=== PATIENT | male | born 1980 | race Caucasian/White ===

== ENCOUNTER 2019-07-10 11:48 | Emergency (ER) | payer OTHER, SELFPAY ==
[2019-07-10] VITALS (23 sets, daily range): BP systolic 98–124; BP diastolic 61–81; PULSE 50–93; RESP 10–23; TEMP 36.7–37; O2SAT 95–100
[2019-07-10] MEDS: Normal Saline Flush 10 ML SYR IVP (12:15)
[2019-07-10 12:37] LABS: Absolute Basophil Count 0.03 k/cumm (0.0-0.2); Absolute Lymphocyte Count 1.22 k/cumm (1.2-3.4); Absolute Monocyte Count 0.56 k/cumm (0.11-0.7); Basophils % 0.6; HCT 45.4 % (40.0-50.0); Lymphocytes % 24.4; Mean Corp. HGB Concentration 35.2 g/dL (32.0-36.0); Mean Corpuscular Hemoglobin 33.5 pg (27.0-33.0); Mean Corpuscular Volume 95.2 fL (80-95); Mean Platelet Volume 10.7 fL (8.0-11.0); Monocytes % 11.2; Neutrophils % 59.8; Platelet Count 200 x1000/uL (130-400); RBC 4.77 m/cumm (4.50-6.00); RBC Distribution Width 11.4 % (11.8-14.1); White Blood Cell Count 5.01 k/cumm (4.4-10.8)
--- NOTE | 2019-07-10 12:45 | DI.RAD_ITS ---
EXAM: XR PORTABLE CHEST AP CLINICAL HISTORY: CP TECHNIQUE: 2D digital imaging was performed. COMPARISON: No exams were available for comparison FINDINGS: MEDIASTINUM: Normal. HEART: Normal. PULMONARY VASCULATURE: Normal. LUNGS: Clear. PLEURAL SPACE: No pleural effusion or pneumothorax. BONE:Normal. OTHER FINDINGS:Normal. IMPRESSION: No acute pulmonary findings. DATA REPOSITORY: RADIATION DOSE DELIVERED:
[2019-07-10 12:48] LABS: ALT 46 U/L (16-63); AST 27 U/L (15-37); Albumin 4.1 g/dL (3.4-5.0); Alkaline Phosphatase 80 U/L (46-116); Anion Gap 5.6 mmol/L (3-11); BUN 22 mg/dL (7-18); Bilirubin, Total 0.4 mg/dL (0.2-1.0); CO2 31.4 mmol/L (21.0-32.0); Calcium 8.7 mg/dL (8.5-10.1); Chloride 101 mmol/L (98-107); Glucose 89 mg/dL (74-106); Sodium 138 mmol/L (136-145); Total Protein 7.6 g/dL (6.4-8.2)
[2019-07-10 12:49] LABS: Troponin I < 0.05 ng/Ml (<0.06)
[2019-07-10 13:12] LABS: D-Dimer 124 ng/mlFEU (<500)
--- NOTE | 2019-07-10 13:22 | W.ED.GENAD ---
Discharge Plan Disposition Patient Disposition: HOME Discharge Details Chief Complaint: RespSymp Clinical Impression: SOB (shortness of breath), Cough Primary Care Provider: Sera,Local ED Provider: Mary Dyer Home Meds and New Rx's Prescriptions: New albuterol sulfate [Proventil HFA] 90 mcg/actuation HFA aerosol inhaler 2 puff IH Q6H PRNQty: 8.5 RF: 0 Discharge Instructions Instructions: Dyspnea (ED), Acute Cough (ED) Additional Instructions: Drink plenty of fluids. Rest activities as tolerated. Use inhaler with spacer as discussed. Follow-up promptly with primary care doctor. Your labs today were reassuring. Your x-ray today is reassuring. Your vital signs today are reassuring. Your Covid testing will likely be resulted in the next 4 to 5 days. Return to the emergency room for any worsening, concerns or alarming symptoms sooner if needed as discussed. 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 Patient ports cough noted thereafter persisted through the week. Patient reports 2 days of shortness of breath chest pressure and mild chest pain. Does report mild associated dizziness. Patient denies fever or chills. Denies obvious covert exposures. Patient denies cardiac history. Patient has no significant cardiac risk factors. No recent surgeries or immobilization. No significant PE risk factors. Patient does report obvious shortness of breath in the last 2 days which is mildly worse with exertion. Patient does report history of asthma. Has not required inhaler use. Does report mild chest tightness. Patient does report history of seasonal allergies. Has tried Zyrtec with no relief in the last few days. Does report this is somewhat atypical of his seasonal allergies. Patient also reports a history of reflux. He has tried Tums in the last few days again with no significant relief of his symptoms. Vital signs normal. Patient is mildly hypotensive but describes a very active lifestyle. Patient moved here recently and has no previous records in the computer. We will plan to rule out ACS, check EKG as well as labs. Will add d-dimer given patient's complaints of dizziness, question of heart racing and shortness of breath with exertion. Given patient's cough for 1 week and development of shortness of breath will consider Covid testing. Initial labs reveal no significant leukocytosis. Patient's electrolytes are normal. Patient's renal function and LFTs normal. Patient's initial troponin normal. EKG reveals a heart rate of 54, sinus bradycardia. Incomplete right bundle branch block is noted. No previous EKG for comparison. No obvious ST segment changes. This was reviewed with Dr. El. D-dimer ordered given patient's complaints of shortness of breath with exertion, chest pressure as well as cough. Patient's PERC score is 0. Patient's d-dimer is negative. Chest x-ray reveals no acute pulmonary abnormalities. Patient's repeat troponin is normal. Patient second EKG reviewed with Dr. El is changed. Patient has no evidence of ACS at this time. Does have a notable incomplete right bundle manuel block and no previous EKGs for comparison. Patient's troponins remain normal with no delta change. Patient has no significant risk factor for ACS. Heart score 0. Discussed patient's results. He does not feel he needs admission at this time for further evaluation of possible ACS or stress testing. He does feel comfortable discharge home at this time. Patient was provided a single nebulizer treatment which he did report some improvement in his symptoms. Patient was ambulated and has no desaturations noted with ambulation or return of symptoms. Patient feels comfortable discharge home at this time. Patient discussed and was requesting a prescription for steroids. I do not feel steroid prescription is reasonable at this time as patient has no obvious hypoxia, no wheezing on exam and no clear indication for steroid at this time. We did discuss the use of it if needed prescription however I recommended this patient have reevaluation if he feels he needs additional treatment or lacks improvement with inhalers at home. Patient has no serum indicators of infection, no obvious pneumonia on x-ray. Although Covid remains in the differential diagnosis due to 5 days of cough and development of shortness of breath with swab performed in the ER prior to nebulizer treatment. Patient recommended convalescing at home until test results return. Patient put on healthcare advisory services manager list for follow-up as he has no local PCP. We did discuss use of allergy medications if this is seasonal allergy induced as patient does have a history of seasonal allergy and asthma. Patient feels comfortable with additional Zyrtec or Claritin in addition to inhaler as he did have mild relief with nebulizer during visit. Patient does feel comfortable discharge home at this time. Alarming signs and symptoms for which patient return as discussed. Strict return precautions discussed. The patient was stable and requested discharge. Prior to discharge, my usual and customary return precautions were reviewed with the patient - this included follow-up instructions and reasons to return to the Emergency Department if conditions worsens, does not improve as expected, or other new concerns arise. HPI General Date/Time Provider Initiated Documentation: 07/10/19 11:58. HPI Narrative: This is a 39-year-old patient presenting to the emergency room for complaints of cough for 1 week. 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 Patient reports that the drill he was using was smoking and he was also reporting particular matter in the air. Patient reports he was not wearing a mask. Patient reports cough began thereafter. Patient describes a dry cough for approximately 5 days then reports in the last 2 days onset of chest pressure anteriorly in the mid of his chest associated with some chest pain for the last 2 days. Patient describes very minimal chest pain. Patient does report shortness of breath noted in the last 2 days. Patient reports he has continued to remain active. He does report bike riding yesterday several miles but reports he had mild increase in shortness of breath when riding. Did report spastic type cough when exerting himself. Patient reports shallow breathing is most comfortable. Patient denies any production to his cough. Difficulty sleeping last night d/t SOB. Denies nasal congestion or sore throat. Denies any voice change. Patient denies loss of taste or smell. Patient does report mild dizziness which has been noted in the last 2 days. Denies any associated headache or balance difficulty. Ambulating without difficulty. No numbness, tingling or weakness in extremities. Denies rashes. Denies fevers or chills. No night sweats. Patient denies any history of similar. Patient reports outside of the essential visit to the grocery store he has otherwise had no ill contacts. Patient does report of an episode during dizziness when he questions heart racing but has denied any other obvious palpitation. No history of hypertension or hyperlipidemia. No significant family history of cardiac disease. Non-smoker. Denies lower extremity swelling or pain. No bowel changes, nausea, vomiting, dysuria or abdominal pain. Related Data Home Medications Medication Instructions Recorded Confirmed albuterol sulfate [Proventil HFA] 2 puff IH Q6H PRN #8.5 gm 07/10/19 Previous Rx's Medication Instructions Recorded albuterol sulfate [Proventil HFA] 2 puff IH Q6H PRN #8.5 gm 07/10/19 Allergies Allergy/AdvReac Type Severity Reaction Status Date / Time No Known Allergies Allergy Unverified 07/10/19 12:00 General Stated Complaint: RespSymp JAMES: 3 Review of Systems All systems reviewed & are unremarkable except as noted in HPI and below PFSH Medical History Asthma (Chronic) Social History Smoking/Tobacco Use Status: Never Alcohol Intake: never Drug use: Never Substance use type: does not use Do you feel safe at home: Yes Do you feel safe in your relationship?: Yes Exam Narrative Exam Narrative: CONST: Healthy appearing patient, in no acute distress. Well hydrated. Alert and oriented. HENMT: Head nomocephalic, normal to inspection. Atraumatic. Hearing grossly normal. External ear canal no erythema or swelling. TM normal bilaterally. Nose normal to inspection. No rhinnorhea. Normal facial exam. Oral mucosa normal. Tounge normal. Dentition normal. Normal posterior oropharynx. Uvula midline. EYES: General normal appearance. Alignment normal. Eyelids normal. Conjunctiva normal. Sclera normal. PERRL. NECK: Normal visual inspection. FROM. No lymphadenopathy. Trachea midline. No Midline tenderness. CHEST: Normal insepection of the chest. RESP: Normal respiratory effort. Speaking full sentences. No cough. No wheezing. No retractions. Clear to auscaltation. Breath sound equal and present bilaterally. CARDIO: No JVD. Normal PMI. Regular Rate. Regular Rhythm. Normal peripheral pulses. GI: Normal inspection of abdomen. No distension. Soft. Nontender. Bowel sounds present in all 4 quadrants. No rebound. No gaurding. MUSCULOSKELETAL: Normal Gait. FROM of all extremities. Distal neurovascularly intact. Sensation intact distally. No lower extremity edema noted. No calf pain noted bilaterally. SKIN: Normal. Dry. No rashes. NEURO: Alert and awake. Speech clear. PSYCH: Normal affect. Cooperative. Course Vital Signs Vital signs: Vital Signs Temperature 36.7 C 07/10/19 11:56 Pulse 60 07/10/19 11:56 Respiratory Rate 18 07/10/19 11:56 Blood Pressure 98/81 L 07/10/19 11:56 Pulse Oximetry 100 07/10/19 11:56 Temperature 36.7 C 07/10/19 11:56 Temperature Source Tympanic 07/10/19 11:56 Pulse 60 07/10/19 11:56 Respiratory Rate 18 07/10/19 11:56 Respiratory Effort 07/10/19 12:59 Blood Pressure 98/81 L 07/10/19 11:56 Blood Pressure Position Sitting 07/10/19 11:56 Pulse Oximetry 100 07/10/19 11:56 Oxygen Delivery Method Room Air 07/10/19 11:56 Oxygen Flow Rate 0 07/10/19 11:56 Pain Level 0 07/10/19 11:56 Lab/Test Results Lab/Test Results: Laboratory Tests Range/Units 07/10/19 07/10/19 07/10/19 12:15 12:15 12:15 WBC (4.4-10.8) k/cumm 5.01 RBC (4.50-6.00) m/cumm 4.77 Hgb (13.5-17.5) g/dL 16.0 Hct (40.0-50.0) % 45.4 MCV (80-95) fL 95.2 H MCH (27.0-33.0) pg 33.5 H MCHC (32.0-36.0) g/dL 35.2 RDW (11.8-14.1) % 11.4 L Plt Count (130-400) x1000/uL 200 MPV (8.0-11.0) fL 10.7 Immature Gran % % 0.0 Neutrophils % 59.8 Lymphocytes % 24.4 Monocytes % 11.2 Eosinophils % 4.0 Basophils % 0.6 Absolute Neutrophils (1.2-6.7) k/cumm 3.00 Absolute Lymphocytes (1.2-3.4) k/cumm 1.22 Absolute Monocytes (0.11-0.7) k/cumm 0.56 Absolute Eosinophils (0.0-0.7) k/cumm 0.20 Absolute Basophils (0.0-0.2) k/cumm 0.03 D-Dimer (<500) ng/mlFEU 124 Sodium (136-145) mmol/L 138 Potassium (3.5-5.1) mmol/L 4.0 Chloride (98-107) mmol/L 101 Carbon Dioxide (21.0-32.0) mmol/L 31.4 Anion Gap (3-11) mmol/L 5.6 BUN (7-18) mg/dL 22 H Creatinine (0.70-1.30) mg/dL 0.70 Estimated GFR/1.73 m2 (mL/min/1.73m2) >= 60.00 Glucose (74-106) mg/dL 89 Calcium (8.5-10.1) mg/dL 8.7 Total Bilirubin (0.2-1.0) mg/dL 0.4 AST (15-37) U/L 27 ALT (16-63) U/L 46 Alkaline Phosphatase (46-116) U/L 80 Troponin I (<0.06) ng/Ml < 0.05 Total Protein (6.4-8.2) g/dL 7.6 Albumin (3.4-5.0) g/dL 4.1
[2019-07-10] MEDS: Albuterol/Ipratropium 3 ML UPD VIAL UPD (15:30)
[2019-07-10 15:57] LABS: Troponin I < 0.05 ng/Ml (<0.06)
--- NOTE | 2019-07-11 10:03 | PDOC.ERCMPRO ---
- If Service Date Differs Date of service: 07/11/19 Time of Service: 10:03 Care Management Progress Note At the request of ED provider, CM coordinates a referral to [facility] to assist patient in establishing care with a primary care physician.
[2019-07-11 17:43] LABS: COVID-19 RT-PCR Result NEGATIVE (Negative)
== END 2019-07-10 16:47 | disposition home or self-care (01) ==
PROVIDERS: Emergency Provider Physician Assistant
DX: R06.02 Shortness of breath (principal); R05 Cough; R07.9 Chest pain, unspecified; X08.8XXA Exposure to other specified smoke, fire and flames, initial encounter; J45.909 Unspecified asthma, uncomplicated
CPT/HCPCS: 36415; 80053; 93005; 94640; 99285; U0003; 71045; 84484; 85025; 85379; 93010; 99284; J7620

== ENCOUNTER 2019-12-22 08:59 | Outpatient (CLI) | payer OTHER, SELFPAY ==
[2019-12-23 15:36] LABS: SARS-CoV-2 RNA Not Detected (NotDetected); SARS-CoV-2 RNA Source Nasal/Nares
== END 2019-12-22 09:19 ==
PROVIDERS: PCP Family Medicine; Visit Provider Family Medicine
DX: R06.02 Shortness of breath (principal)
CPT/HCPCS: U0003

== ENCOUNTER 2020-05-25 07:56 | Outpatient (CLI) | payer OTHER, SELFPAY ==
--- NOTE | 2020-05-25 14:30 | DI.RAD_ITS ---
EXAM: XR KNEE LT 3V AP,LAT,FRANCOISE CLINICAL HISTORY: CHRONIC LT LATERAL KNEE PAIN AROUND BORDER OF PATELLA, NO TRAUMA, M25.562 TECHNIQUE: COMPARISON: No exams were available for comparison FINDINGS: Three views were obtained the cartilaginous joint spaces appear fairly well maintained. No gross ple ural effusion seen on the lateral view. No bony abnormality seen. IMPRESSION: Negative examination of the knee. RADIATION DOSE DELIVERED: Total DLP
== END 2020-05-25 08:16 ==
PROVIDERS: PCP Internal Medicine; Visit Provider Internal Medicine
DX: M25.562 Pain in left knee (principal)
CPT/HCPCS: 73562

== ENCOUNTER 2020-05-26 03:35 | Outpatient (CLI) | payer OTHER, SELFPAY ==
[2020-05-26 10:52] LABS: Abs Immature Grans 0.01 10^3/uL (0.0-0.06); Absolute Basophil Count 0.05 10^3/uL (0.0-0.2); Absolute Eosinophil Count 0.35 10^3/uL (0.0-0.7); Absolute Lymphocyte Count 1.44 10^3/uL (1.2-3.4); Absolute Monocyte Count 0.64 10^3/uL (0.1-0.8); Basophils % 0.9; Eosinophils % 6.2; HCT 45.3 % (40.0-50.0); HGB 15.5 g/dL (13.5-17.5); Immature Grans % 0.2; Lymphocytes % 25.3; MCHC 34.2 % (32.0-36.0); MCV 96.6 fL (80-95); Monocytes % 11.2; Neutrophils % 56.2; Nucleated RBC 0 %; Platelet Count 183 10^3/uL (130-400); RBC 4.69 10^6/uL (4.36-5.78); RDW 11.2 % (11.8-14.1); RDW-SD 39.6 fL; WBC 5.69 10^3/uL (4.4-10.8)
[2020-05-26 11:57] LABS: ALT 35 U/L (16-63); AST 20 U/L (15-37); Albumin 3.9 g/dL (3.4-5.0); Alkaline Phosphatase 62 U/L (46-116); Anion Gap 9.4 mmol/L (3-11); BUN 18 mg/dL (7-18); Bilirubin, Total 0.4 mg/dL (0.2-1.0); CO2 28.6 mmol/L (21.0-32.0); CREATININE 0.6 mg/dL (0.70-1.30); Calcium 8.6 mg/dL (8.5-10.1); Calculated LDL 76 mg/dL (<100); Chloride 105 mmol/L (98-107); Cholesterol 148 mg/dL (<200); Glucose 87 mg/dL (74-106); HDL Cholesterol 67 mg/dL (40-60); Potassium 4.4 mmol/L (3.5-5.1); Sodium 143 mmol/L (136-145); Total Protein 6.9 g/dL (6.4-8.2); Triglyceride 29 mg/dL (<150)
== END 2020-05-26 03:36 | disposition home or self-care (01) ==
LOC: LBO 03:35
PROVIDERS: PCP Internal Medicine; Visit Provider Internal Medicine
DX: J45.40 Moderate persistent asthma, uncomplicated (principal); Z00.00 Encounter for general adult medical examination without abnormal findings
CPT/HCPCS: 36415; 80053; 80061; 85025

== ENCOUNTER 2020-06-03 02:11 | Outpatient (CLI) | payer OTHER, SELFPAY ==
--- NOTE | 2020-06-03 | DI.MRI_ITS ---
EXAM: MR LOWER JOINT LT WO CLINICAL HISTORY: ? LAT MENISCUS TEAR, S83.204D,LT LAT KNEE PAIN,EFFUSION, MILD TECHNIQUE: Multiplanar multisequence MRI of the left knee was performed. COMPARISON: CR XR KNEE LT 3V AP,LAT,FRANCOISE from 05/25/2020 FINDINGS: EFFUSION: There is no evidence of joint effusion or [place] cyst in the popliteal fossa. MARROW:There is no evidence of fracture, bone contusion, nor osteochondral defects.. Benign-appearin g small bone island is noted in proximal tibial metaphysis, lateral of center. There are no ominous osseous lesions. PATELLOFEMORAL COMPARTMENT: The quadriceps tendon is intact. The patellar ligament is intact. There is no significant thinning of the retropatellar cartilage. No evidence of fissure nor signific ant chondral defect. No osteochondral defect at this level.There is no intraosseous signal to sugges t recent patellar dislocation. There are no patellar retinacular tears. CRUCIATE LIGAMENTS: The anterior cruciate ligament is intact.The posterior cruciate ligament is intac t. MEDIAL COMPARTMENT/MEDIAL MENISCUS: There are no tears of the medial meniscus evident.. There are no chondral defects, osteochondral defects, subarticular marrow edema, nor osteophytes evid ent. MEDIAL COLLATERAL LIGAMENT: Intact LATERAL COMPARTMENT/LATERAL MENISCUS: There is no evidence of lateral meniscal tear.There are no imelda dral defects, osteochondral defects, subarticular marrow edema, nor osteophytes evident. ILIOTIBIAL BAND: Intact but there is some mild fluid interposed between the iliotibial band and outer aspect of the lateral femoral condyle LATERAL COLLATERAL LIGAMENT COMPLEX: The fibular collateral ligament is intact. The biceps femoris t endon is intact.Popliteus muscle and tendon are intact. IMPRESSION: 1. No evidence of significant total derangement. There is some mild fluid medial to the iliotibial band but there is no abnormal signal in the iliotibial band itself nor at the insertion on Gerdy's tu bercle on the anterior lateral aspect of the tibial plateau. 2. There are no cruciate or collateral ligament tears. 3. There are no meniscal tears. 4. No bone contusions. No osteochondral defects. Minimal if any significant degenerative changes. No osteophytes DATA REPOSITORY:
== END 2020-06-03 02:31 ==
PROVIDERS: PCP Internal Medicine; Visit Provider Nurse Practitioner Adult Health
DX: M25.562 Pain in left knee (principal); M25.462 Effusion, left knee
CPT/HCPCS: 73721

== ENCOUNTER 2020-06-11 08:42 | Outpatient (CLI) | payer OTHER, SELFPAY ==
--- NOTE | 2020-06-11 14:37 | DI.RAD_ITS ---
EXAM: XR CHEST 2V PA LATERAL CLINICAL HISTORY: ASTHMA, UNSPECIFIED ASTHMA SEVERITY J45.909, DYSPNEA TECHNIQUE: 2D digital imaging was performed. COMPARISON: CR XR PORTABLE CHEST AP from 07/10/2019 FINDINGS: MEDIASTINUM: Normal. HEART: Normal. PULMONARY VASCULATURE: Normal. LUNGS: Mildly hyperinflated. Clear. No peribronchial thickening. No abnormal interstitial changes. PLEURAL SPACE: No pleural effusion or pneumothorax. BONE:Normal. OTHER FINDINGS:Normal. IMPRESSION: No acute pulmonary findings. DATA REPOSITORY: RADIATION DOSE DELIVERED:
== END 2020-06-11 09:02 ==
PROVIDERS: PCP Internal Medicine; Visit Provider Internal Medicine Critical Care Medicine
DX: J45.909 Unspecified asthma, uncomplicated (principal); R06.09 Other forms of dyspnea
CPT/HCPCS: 71046

== ENCOUNTER → 2021-05-12 02:27 | Outpatient (CLI) | payer OTHER, SELFPAY ==
--- NOTE | 2021-05-12 | DI.MRI_ITS ---
Exam(s) MR CERVICAL SPINE WO/W EXAM: MR CERVICAL SPINE WO/W CLINICAL HISTORY: POLYNEUROPATHY,G62.9 TECHNIQUE: Multiplanar multisequence MRI of the cervical spine was performed. CONTRAST MATERIAL: IV Contrast: 16 ML of Dotarem contrast administered. COMPARISON: No previous for comparison. FINDINGS: BONES: Vertebral body heights are maintained. Intervertebral disc spaces are normal. Alignment is nor mal. Bone marrow signal intensity is within normal limits. CERVICAL CORD: Craniovertebral junction is unremarkable. The cervical cord is normal size and signal intensity. No lesion is present. SOFT TISSUES: Unremarkable. ENHANCEMENT: No suspicious enhancement identified. C2-3: No disc herniation or bulge is identified. No significant central spinal canal or neural forami nal stenosis. C3-4: There is prominence of the right uncovertebral joint. This causes [id number] narrowing o f the right neural foramen. No significant central spinal canal or left neural foraminal stenosis is present. C4-5: There is mild prominence of the osteophyte disc complex eccentric to the right. No significant central spinal canal or neural foraminal stenosis C5-6: No disc herniation or bulge is identified. No significant central spinal canal or neural forami nal stenosis C6-7: No disc herniation or bulge is identified. No significant central spinal canal or neural forami nal stenosis C7-T1: No disc herniation or bulge is identified. No significant central spinal canal or neural rai inal stenosis IMPRESSION: 1. No spinal cord lesion. No abnormal enhancement in the spinal cord or cervical spine. 2. Degenerative changes at C3-4 and C4-5. The findings do result in mild to moderate narrowing of th e right neural foramen at C3-C4. DATA REPOSITORY:
--- NOTE | 2021-05-12 | DI.MRI_ITS ---
Exam(s) MR BRAIN WO/W EXAM: MR BRAIN WO/W CLINICAL HISTORY: POLYNEUROPATHY, G62.9 TECHNIQUE: Multiplanar multisequence MRI of the brain was performed. CONTRAST MATERIAL: IV Contrast: 16 mL of Dotarem contrast administered. COMPARISON: No exams were available for comparison FINDINGS: VENTRICLES AND EXTRA AXIAL SPACES: Normal in size and morphology for the patient's age. HEMORRHAGE: None. CEREBRAL PARENCHYMA: No focus of restricted diffusion to suggest acute infarct. No space-occupying le jeronimo identified. MIDLINE SHIFT: None. BRAINSTEM/CEREBELLUM: Normal. CALVARIUM: Normal. ENHANCEMENT: No suspicious enhancement identified. VISUALIZED PARANASAL SINUSES/MASTOIDS: There is a mucous retention cyst in the left frontal sinus. T he visualized paranasal sinuses are otherwise clear. [place]: Normal flow void. PITUITARY GLAND: Unremarkable. OTHER FINDINGS: IMPRESSION: Unremarkable MRI of the brain. DATA REPOSITORY:
[2021-05-12] MEDS: Normal Saline Flush 10 ML SYR IVP (08:10)
[2021-05-12] MEDS: Gadoterate meglumine 20 ML VIAL 16 ML IVP (08:11)
== END ==
PROVIDERS: PCP Internal Medicine; Visit Provider Internal Medicine
DX: G62.9 Polyneuropathy, unspecified (principal); M50.31 Other cervical disc degeneration, high cervical region; M50.321 Other cervical disc degeneration at C4-C5 level
CPT/HCPCS: 70553; 72156

== ENCOUNTER 2021-09-28 18:51 | Emergency (ER) | payer OTHER, SELFPAY ==
[2021-09-28 18:58] VITALS: BP 120/71; PULSE 68; RESP 16; TEMP 36.6; O2SAT 98
--- NOTE | 2021-09-28 19:00 | RT.EKG_ITS ---
APPROVED REPORT Exam: Resting ECG Reason for Exam: chest tightness Patient Location: E HR:65 bpm ECG Measurements Heart Rate 65 AXIS ND 137 P 59 QRSd 120 QRS 36 QT 396 T 58 QTc 414 Conclusion Sinus rhythm...normal P axis, V-rate 60- 99 IVCD, consider RBBB...QRSd>120mS, terminal axis(90,270) ST elev, probable normal early repol pattern...ST elevation, age<55 normal sinus rhythm, normal axis, normal intervals, incomplete RBBB early repol
--- NOTE | 2021-09-28 20:45 | DI.RAD_ITS ---
Exam(s) XR PORTABLE CHEST AP EXAM: XR PORTABLE CHEST AP CLINICAL HISTORY: inhalation of fumes, concern for pneumonitis. TECHNIQUE: 2D digital imaging was performed. COMPARISON: CR XR CHEST 2V PA LATERAL from 06/11/2020 FINDINGS: Single AP portable view. Heart size is upper normal. The mediastinum is not widened. Lungs are clear. No infiltrates nor obvious pleural effusions. IMPRESSION: No acute pulmonary findings on this single AP portable view of the chest. DATA REPOSITORY: RADIATION DOSE DELIVERED: All CT scans at this facility use at least one of these dose optimization techniques: automated exposure control; mA and/or kV adjustment per patient size (includes targeted e xams where dose is matched to clinical indication); or iterative reconstruction.
--- NOTE | 2021-09-28 21:00 | W.ED.GENAD ---
Discharge Plan Disposition Patient Disposition: HOME Condition: Improving Discharge Details Clinical Impression: Breath shortness Primary Care Provider: Vish Alfred ED Provider: Gregorio Calixto Home Meds and New Rx's Prescriptions: New albuterol sulfate 90 mcg/actuation aerosol powdr breath activated 2 inh inhalation Q6H PRNQty: 1 0RF No Action divalproex 250 mg tablet extended release 24 hr 250 mg PO DAILY Label Comments: per med list from [facility], Dr. Alfred 03/15/21 multivitamin Tablet 1 tab PO DAILY omega-3 fatty acids 500 mg capsule 500 mg PO DAILY Label Comments: per med list from [facility], Dr. Alfred 03/15/21. No dose listed albuterol sulfate [Proventil HFA] 90 mcg/actuation HFA aerosol inhaler 2 puff IH Q6H PRNQty: 8.5 0RF cetirizine [Zyrtec] 10 mg Tablet 10 mg PO DAILY fluticasone propion-salmeterol [Wixela Inhub] 500-50 mcg/dose blister with device INHALATION DAILY Discharge Instructions Instructions: Dyspnea (ED) Additional Instructions: Please follow-up with your student services coordinator as scheduled. Please return the emergency department for any worsening symptoms Medical Decision Making 41-year-old male presents with shortness of breath and chest tightness several days after accidentally inhaling the fumes from 30% acetic acid solution while cleaning his basement floor. Patient was wearing a respirator mask, despite this has had some chest tightness and shortness of breath. Denies cough fevers chills nausea or vomiting. Hemodynamically stable afebrile nontoxic lungs clear bilaterally, normoxic. Consider likely mild chemical pneumonitis versus asthma exacerbation, low suspicion for ACS PE pneumonia or pneumothorax. Screening chest x-ray, nebs and steroids likely home with follow-up with his student services coordinator 22: 18 patient resting comfortably feeling some improvement after nebs and steroids. Has a pulmonology appointment coming up in the coming weeks. Home care instructions and return precautions given. HPI General Date/Time Provider Initiated Documentation: 09/28/21 19:04. HPI Narrative: 41-year-old male history of asthma presents with shortness of breath and chest tightness over the past several days after inhaling the fumes from 30% acetic acid while cleaning his basement. Denies cough fevers chills nausea or vomiting. Has had some mild lightheadedness. Related Data Home Medications Medication Instructions Recorded Confirmed albuterol sulfate 90 mcg/actuation 2 puff inhalation Q6H PRN #8.5 07/10/19 09/28/21 aerosol inhaler (Proventil HFA) grams divalproex 250 mg tablet,extended 250 mg PO DAILY 04/13/21 release 24 hr multivitamin 1 tab PO DAILY 04/13/21 09/28/21 omega-3 fatty acids 500 mg capsule 500 mg PO DAILY 04/13/21 09/28/21 albuterol sulfate 90 mcg/actuation 2 inh inhalation Q6H PRN #1 ea 09/28/21 breath activated powder inhaler cetirizine 10 mg tablet (Zyrtec) 10 mg PO DAILY 09/28/21 09/28/21 fluticasone 500 mcg-salmeterol 50 ea inhalation DAILY 09/28/21 mcg/dose blistr powdr for inhalation (Wixela Inhub) Previous Rx's Medication Instructions Recorded albuterol sulfate 90 mcg/actuation 2 puff inhalation Q6H PRN #8.5 07/10/19 aerosol inhaler (Proventil HFA) grams albuterol sulfate 90 mcg/actuation 2 inh inhalation Q6H PRN #1 ea 09/28/21 breath activated powder inhaler Allergies Allergy/AdvReac Type Severity Reaction Status Date / Time seasonal Allergy Uncoded 09/28/21 19:04 General Stated Complaint: RespSymp JAMES: 3 Review of Systems Narrative: Review of Systems Constitutional: negative Eyes: negative ENT: negative Cardiovascular: negative Respiratory: Chest tightness, shortness of breath Gastrointestinal: negative : negative Musculoskeletal: negative Skin: negative Neurologic: negative Psych: negative PFSH All Active Problems (Updated 09/28/21 @ 22:19 by Gregorio Calixto MD) Breath shortness (Acute) Bilateral knee pain (Acute) History of appendectomy (Chronic) Asthma (Chronic) Medical History (Updated 09/28/21 @ 22:19 by Gregorio Calixto MD) Asthma Carpal tunnel syndrome Polyneuropathy Social History (Updated 07/17/19 @ 09:38 by Hortencia Combs RN) Smoking/Tobacco Use Status: Never Smoking risk assessment performed?: Yes Alcohol Intake: never Drug use: Never Substance use type: does not use Education Level: college 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) What type of physical activity do you participate in: regular exercise Do you feel safe at home: Yes Do you feel safe in your relationship?: Yes Exam Narrative Exam Narrative: Physical Examination General: alert, awake, cooperative, resting comfortably, no acute distress HEENT: normocephalic, atraumatic; PERRL, EOM intact, conjunctiva normal; no nasal discharge; moist mucous membranes, oral and pharyngeal mucosa normal, tolerating secretions Neck: supple, trachea midline; full ROM Chest: normal to inspection Respiratory: normal respiratory effort, speaking in full sentences, clear to auscultation, no wheezing, rales or rhonchi Cardiac: regular rate, regular rhythm, S1S2 intact, no murmurs rubs or gallops GI: abdomen soft, non-tender, non-distended; no palpable mass or hepatosplenomegaly Skin: no lesions, rashes or trauma appreciated Neuro: AAOx3, normal speech, moving all extremities Psych: Appropriate mood and affect Course Vital Signs Vital signs: Vital Signs Temperature 36.6 C 09/28/21 18:58 Pulse 68 09/28/21 18:58 Respiratory Rate 16 09/28/21 18:58 Blood Pressure 120/71 09/28/21 18:58 Pulse Oximetry 98 09/28/21 18:58 Temperature 36.6 C 09/28/21 18:58 Temperature Source Temporal Artery Scan 09/28/21 18:58 Pulse 68 09/28/21 18:58 Respiratory Rate 16 09/28/21 18:58 Respiratory Effort 09/28/21 18:58 Blood Pressure 120/71 09/28/21 18:58 Blood Pressure Position Sitting 09/28/21 18:58 Pulse Oximetry 98 09/28/21 18:58 Oxygen Delivery Method Room Air 09/28/21 18:58 Oxygen Flow Rate 0 09/28/21 18:58 Pain Level 4 09/28/21 18:58 Comment 09/28/21 18:58
[2021-09-28] MEDS: Dexamethasone 10 MG/ML VIAL IM (21:02)
[2021-09-28] MEDS: Albuterol/Ipratropium 3 ML UPD VIAL UPD (21:04)
--- NOTE | 2021-09-28 21:58 | DI.VRAD_ITS ---
PROCEDURE INFORMATION: Exam: XR Chest Exam date and time: 09/28/2021 9:21 PM Age: 41 years old Clinical indication: Other: Inhalation of fumes, concern for pneumonitis TECHNIQUE: Imaging protocol: Radiologic exam of the chest. Views: 1 view. COMPARISON: CR XR CHEST 2V PA LATERAL 06/11/2020 2:27 PM FINDINGS: Lungs: Normal pulmonary expansion. Pulmonary vasculature grossly normal. No gross pulmonary infiltrates or edema pattern. Pleural spaces: No pleural effusion. No pneumothorax. Heart/Mediastinum: Heart size normal. No tracheal/mediastinal shift. Bones/joints: No acute osseous abnormalities are identified. IMPRESSION: No acute thoracic process. Dictated and Authenticated by: Pedro Merritt MD. Ordering:TREY Perkins MD
[2021-09-28 22:40] VITALS: BP 122/68; PULSE 80; RESP 16; TEMP 37.2; O2SAT 95
== END 2021-09-28 22:39 | disposition home or self-care (01) ==
PROVIDERS: Emergency Provider Emergency Medicine; PCP Internal Medicine
DX: R06.02 Shortness of breath (principal); R07.89 Other chest pain; T54.2X1A Toxic effect of corrosive acids and acid-like substances, accidental (unintentional), initial encounter; J45.909 Unspecified asthma, uncomplicated
CPT/HCPCS: 93005; 96372; 99284; 71045; 93010; J1100; J7620

== ENCOUNTER 2021-10-14 01:25 | Outpatient (CLI) | payer OTHER, SELFPAY ==
--- OUTSIDE RECORDS SUMMARY | 2021-10-14 01:27 | XMS_ITS | Clinical Summary ---
:1980 Demographics Home Phone Preferred Language Unknown Marital Status Unknown Adventist Affiliation Unknown Race Unknown Ethnic Group Unknown Author Organization [facility] Address [address] [place] [address] Care Team Providers Name Role Phone Unavailable Primary Care Provider Unavailable Social History Tobacco Use Types Packs/Day Years Used Date Never Assessed Sex Assigned at Date Recorded Not on file Plan of Treatment Not on file
--- OUTSIDE RECORDS SUMMARY | 2021-10-14 01:27 | XMS_ITS | Encounter Summary ---
:1980 Demographics Home Phone Preferred Language Unknown Marital Status Unknown Judaism Affiliation Unknown Race Unknown Ethnic Group Unknown Author Organization [facility] Address [address] [place] [address] Care Team Providers Name Role Phone Unavailable Primary Care Provider Unavailable Encounter Details Date Type Department Care Team Description 07/10/2019 Lab Requisition [facility] Outr Resulting Lab, Pathology & Laboratory Provider [facility] [address], [place] [id number] Social History Tobacco Use Types Packs/Day Years Used Date Never Assessed Sex Assigned at Date Recorded Not on file documented as of this encounter Plan of Treatment Not on filedocumented as of this encounter Procedures Procedure Name Priority Date/Time Associated Comments Diagnosis DO NOT ORDER Today 07/10/2019 15:20 Results for this STANDALONE - BROAD EDT procedure are in COVID TEST the results section. COVID-19 TESTING Routine 07/10/2019 15:20 Results for this EDT procedure are i n the results section. documented in this encounter Results DO NOT ORDER STANDALONE - BROAD COVID TEST (07/10/2019 15:20 EDT) COVID-19 rt-PCR NEGATIVE Negative [facility] Result Comment: LABORATORY 2019-novel Coronavirus (2019 -nCoV) not detected by the qRT-PCR assay. Consider testing for other respiratory viruses or re-collecting for 2019-nCoV testing. Note: Optimum timing for peak viral levels du ring infections caused by 20 -nCoV have not been determined. Collection of multiple specimens from the same patient may be necessary to detect the virus. Limitations Positive results are indicat nori of active infection with SARS-CoV-2 but do not rule out bacterial infection or co-infection with other viruses. The agent detected may not be the definite cause of diseas e. In addition, detection of viral RNA may not indicate the presence of infectious virus or that SARS-CoV-2 is the causative agent for clinical symptoms. Negative results do not prec lude SARS-CoV-2 infection and should not be used as the sole basis for patient management decisions. Negative results must be combined with clinical observations, patient his tory, and epidemiological in formation. False negative results may also occur if amplification inhibitors are present in the specimen or if inadequate numbers of organisms are present in the specimen. Op timum specimen types and jodie ing for peak viral levels during infections caused by SARS-CoV-2 have not been fully determined. Collection of multiple specimens (types and time points) from the same patient may be necessary to detect the virus. The test was validated for u with upper respiratory specimens obtained via nasopharyngeal or oropharyngeal swabs in VTM, UTM, M4, M5, M6, saline, and MTM media. The performance of this test has not be en established for other spe cimens. Specimens collected using other FDA recommended Specimen Collection Materials listed in the FDA COVID-19 [employer] communication (May 15, 2019) are pr ocessed with the caveat that they were not all validated for use with this test and the result must be interpreted in this context. Furthermore, a false negative results may occur if a specimen is improperly collected, transported or handled. If the virus mutates in the RT-PCR target region, SARS-CoV-2 may not be detected or may be detected less predictably. Inhibitors or other types of interference may produce a false negative result. An interference study evaluating the effect of common cold medications was not performed. This test is not FDA-cleared but its performance characteristics were established by our CLIA-certified, CAP-accredited, high complexity laboratory in accordance with CLIA regulations, [employer] (CAP) guidel vaishali (May 08, 2019), and FDA guidance (Apr 19, 2019). This test is only for use un [place] the Food and Drug Administration's Emergency Use Authorization. Specimen Swab - Entire nasopharynx (body structur e) Performing Organization Address City/State/ZIP Code Phon e Number [facility] [place], [place] COVID-19 TESTING (07/10/2019 15:20 EDT) COVID-19 rt-PCR NEGATIVE Negative [facility] Result Comment: LABORATORY 2019-novel Coronavirus (2019 -nCoV) not detected by the qRT-PCR assay. Consider testing for other respiratory viruses or re-collecting for 2019-nCoV testing. Note: Optimum timing for peak viral levels du ring infections caused by 20 -nCoV have not been determined. Collection of multiple specimens from the same patient may be necessary to detect the virus. Limitations Positive results are indicat nori of active infection with SARS-CoV-2 but do not rule out bacterial infection or co-infection with other viruses. The agent detected may not be the definite cause of diseas e. In addition, detection of viral RNA may not indicate the presence of infectious virus or that SARS-CoV-2 is the causative agent for clinical symptoms. Negative results do not prec lude SARS-CoV-2 infection and should not be used as the sole basis for patient management decisions. Negative results must be combined with clinical observations, patient his tory, and epidemiological in formation. False negative results may also occur if amplification inhibitors are present in the specimen or if inadequate numbers of organisms are present in the specimen. Op timum specimen types and jodie ing for peak viral levels during infections caused by SARS-CoV-2 have not been fully determined. Collection of multiple specimens (types and time points) from the same patient may be necessary to detect the virus. The test was validated for u with upper respiratory specimens obtained via nasopharyngeal or oropharyngeal swabs in VTM, UTM, M4, M5, M6, saline, and MTM media. The performance of this test has not be en established for other spe cimens. Specimens collected using other FDA recommended Specimen Collection Materials listed in the FDA COVID-19 [employer] communication (May 15, 2019) are pr ocessed with the caveat that they were not all validated for use with this test and the result must be interpreted in this context. Furthermore, a false negative results may occur if a specimen is improperly collected, transported or handled. If the virus mutates in the RT-PCR target region, SARS-CoV-2 may not be detected or may be detected less predictably. Inhibitors or other types of interference may produce a false negative result. An interference study evaluating the effect of common cold medications was not performed. This test is not FDA-cleared but its performance characteristics were established by our CLIA-certified, CAP-accredited, high complexity laboratory in accordance with CLIA regulations, [employer] ([employer]) guidel vaishali (May 08, 2019), and FDA guidance (Apr 19, 2019). This test is only for use un [place] the Food and Drug Administration's Emergency Use Authorization. Performing Lab [facility] LABORATORY SERVICES Specimen Swab - Entire nasopharynx (body structur e) Performing Organization Address City/State/ZIP Code Phon e Number [facility] [address] [place] [address] SERVICES [facility] [place], [place] documented in this encounter Visit Diagnoses Not on filedocumented in this encounter
[2021-10-14 12:44] LABS: Abs Immature Grans 0.03 10^3/uL (0.0-0.06); Absolute Basophil Count 0.02 10^3/uL (0.0-0.2); Absolute Eosinophil Count 0.02 10^3/uL (0.0-0.7); Absolute Lymphocyte Count 1.45 10^3/uL (1.2-3.4); Absolute Monocyte Count 0.97 10^3/uL (0.1-0.8); Absolute Neutrophil Count 7.17 10^3/uL (1.2-6.7); Basophils % 0.2; Eosinophils % 0.2; HCT 43.4 % (40.0-50.0); HGB 15.2 g/dL (13.5-17.5); Immature Grans % 0.3; MCH 33.7 pg (27.0-33.0); MCV 96 fL (80-95); MPV 10.1 fL (8.0-11.0); Neutrophils % 74.3; Platelet Count 202 10^3/uL (130-400); RBC 4.51 10^6/uL (4.36-5.78); RDW 11.2 % (11.8-14.1); RDW-SD 39.6 fL; WBC 9.66 10^3/uL (4.4-10.8)
[2021-10-17 11:08] LABS: IgA 277 mg/dL (85-499); IgG 1130 mg/dL (610-1,616); IgM 84 mg/dL (35-242)
[2021-10-17 16:31] LABS: Alternaria Tenuis IgE 8.94 kU/L; Beech IgE <0.35 kU/L; Cat Epithelium IgE 0.67 kU/L; Dog Dander IgE <0.35 kU/L; Elm IgE <0.35 kU/L; House Dust Panel 1.11 kU/L; Oak IgE 0.82 kU/L; Short Ragweed IgE <0.35 kU/L; Silver Birch IgE <0.35 kU/L; Timothy Grass IgE 2.93 kU/L
== END 2021-10-14 01:26 | disposition home or self-care (01) ==
LOC: LBO 01:26
PROVIDERS: PCP Internal Medicine; Visit Provider Internal Medicine Critical Care Medicine
DX: J45.909 Unspecified asthma, uncomplicated (principal); Z01.82 Encounter for allergy testing
CPT/HCPCS: 36415; 82784; 85025; 86003

== ENCOUNTER 2021-10-26 04:20 | Outpatient (CLI) | payer OTHER, SELFPAY ==
[2021-10-28 08:12] LABS: IgE 206 IU/mL (<158)
== END 2021-10-26 04:21 | disposition home or self-care (01) ==
LOC: LBO 04:21
PROVIDERS: PCP Internal Medicine; Visit Provider Internal Medicine Critical Care Medicine
DX: J45.909 Unspecified asthma, uncomplicated (principal)
CPT/HCPCS: 82785